=== PATIENT | female | born 1930 | race Two or more races ===

== ENCOUNTER 2018-06-14 08:23 | Emergency (ER) | payer OTHER ==
[~2018-06-14] VITALS: Ht 160 cm; Wt 108.9 kg
--- NOTE | 2018-06-14 08:23 | NUR ---
PT BIBA BLS TO BED 7
[2018-06-14 08:31] VITALS: BP 99/64
[2018-06-14] MEDS ORDERED: ESCI10TA PO (08:46)
[2018-06-14] MEDS ORDERED: FURO-570 PO (08:46)
[2018-06-14] MEDS ORDERED: METF500T PO (08:46)
[2018-06-14] MEDS ORDERED: MELA5TAB6 PO (08:46)
[2018-06-14] MEDS ORDERED: GABA300C PO (08:46)
[2018-06-14] MEDS ORDERED: SYN.05 PO (08:46)
[2018-06-14] MEDS ORDERED: CARV3.12 PO (08:46)
--- NOTE | 2018-06-14 08:53 | NUR ---
Patient being evaluated by physician at bedside.
--- NOTE | 2018-06-14 08:54 | NUR ---
BIBA WITH C/O EPIGASTRIC PAIN FOR 3 DAYS. STATES THE PAIN IS A BURNING AND CONSTANT. STATES SHE ALSO HAS "HEART PAIN" IN HER LEFT SHOULDER AND LEFT UPPER BACK. PACEMAKER NOTED. PATIENT ON MONITOR. BED IN LOW LOCKED POSITION WITH SIDE RAILS UP. VSS.
[2018-06-14] MEDS ORDERED: NACL 0.9% 1,000 ML IV ONE (08:55)
[2018-06-14] MEDS ORDERED: FAMOTIDINE 20 MG/2 ML VIAL IVP ONE (08:55)
[2018-06-14] MEDS ORDERED: ONDANSETRON 4 MG/2 ML VIAL IVP ONE (08:55)
[2018-06-14] MEDS ORDERED: DEXAMETHASONE 10 MG/ML VIAL IVP ONE (09:15)
[2018-06-14] MEDS ORDERED: METOCLOPRAMIDE 10 MG/2 ML INJ VIAL IVP ONE (09:15)
--- NOTE | 2018-06-14 09:30 | NUR ---
LAB AT BEDSIDE.
--- NOTE | 2018-06-14 09:35 | NUR ---
patient states pain has improved after medication was administered.
--- NOTE | 2018-06-14 09:40 | NUR ---
PATIENT TAKEN TO RADIOLOGY BY [facility] IN [facility].
[2018-06-14 09:46] LABS: BASOPHILS % (AUTO) 0.3 % (0.0-2.0); EOSINOPHILS % (AUTO) 0.3 % (0.0-4.0); HEMATOCRIT 36.3 % (36-48); LYMPHOCYTES # (AUTO) 0.7 K/uL (2.5-16.5); LYMPHOCYTES % (AUTO) 8.5 % (20.5-51.1); MEAN CORPUSCULAR HEMOGLOBIN 33 pg (27-31); MEAN CORPUSCULAR HGB CONC 33 g/dL (33-37); MEAN CORPUSCULAR VOLUME 98.4 fL (80-94); MONOCYTES # (AUTO) 0.4 K/uL (0.8-1.0); MONOCYTES % (AUTO) 4.8 % (1.7-9.3); NEUTROPHILS # (AUTO) 7.4 K/uL (1.8-7.7); NEUTROPHILS % (AUTO) 86.1 % (42.2-75.2); PLATELET COUNT (AUTO) 77 K/uL (140-450); RED BLOOD CELL COUNT(AUTO) 3.69 MIL/uL (4.20-5.40); RED CELL DISTRIBUTION WIDTH 15.4 % (11.6-13.7); WHITE BLOOD COUNT (AUTO) 8.6 K/uL (4.8-10.8)
--- NOTE | 2018-06-14 09:55 | NUR ---
PT RETURNED FROM CT
[2018-06-14 09:59] LABS: ANION GAP 12.9 (8-16); CARBON DIOXIDE 28.6 mmol/L (21-32); CHLORIDE 98 mmol/L (98-107); CREATININE 1.7 mg/dL (0.6-1.3); GLUCOSE 111 mg/dL (74-106); POTASSIUM 3.5 mmol/L (3.5-5.1); SODIUM SERUM 136 mmol/L (136-145); UREA NITROGEN, BLOOD 22 mg/dL (7-18)
[2018-06-14 10:05] LABS: ALBUMIN 3.6 g/dL (3.4-5.0); ASPARTATE AMINOTRANSFERASE 18 U/L (15-37); TOTAL BILIRUBIN 2.1 mg/dL (0.0-1.0)
[2018-06-14 10:42] LABS: ACETONE, SERUM NEGATIVE (NEGATIVE); AMYLASE 32 U/L (25-115); LIPASE 95 U/L (73-393); MAGNESIUM 1.7 mg/dL (1.8-2.4)
--- NOTE | 2018-06-14 10:51 | NUR ---
PATIENT STATES NO NEEDS AT THIS TIME.
--- NOTE | 2018-06-14 11:02 | NUR ---
PATIENT AMB WITH WALKER TO RESTROOM TO PROVIDE URINE SAMPLE.
[2018-06-14 11:08] LABS: FREE T4 (FREE THYROXINE) 1.44 ng/dL (0.76-1.46); THYROID STIMULATING HORMONE 2.86 uIU/mL (0.34-3.74)
[2018-06-14 11:21] LABS: BILIRUBIN,URINE 1+ (NEGATIVE); BLOOD, URINE NEGATIVE (NEGATIVE); COLOR,URINE YELLOW (YELLOW); LEUKOCYTE ESTERASE ,URINE TRACE (NEGATIVE); PH,URINE 5.5 (5.0-9.0); UGLUCOSE NEGATIVE (NEGATIVE)
[2018-06-14 11:42] LABS: APPEARANCE,URINE SLIGHTLY HAZY (CLEAR); NITRITE, URINE POSITIVE (NEGATIVE)
[2018-06-14 11:43] LABS: RBC,URINE 0-5 /HPF (0-5); WBC,URINE 0-5 /HPF (0-5)
--- NOTE | 2018-06-14 12:14 | NUR ---
spoke with patients daughter Jenna and she was informed on patients condition and admit status.
[2018-06-14 14:34] VITALS: BP 113/58
--- NOTE | 2018-06-14 14:35 | NUR ---
Patient to be transferred to [facility]. Is being transferred due to need for higher level of care. Receiving facility has accepting physician and available space. ER physician has signed transfer form. Patient has agreed to transfer and signed form. Patient belongings inventoried and will be sent with patient. Copy of nursing notes, lab reports, EKG, Physicians Orders and X-rays to be sent with patient. Report called to RN at receiving facility. [facility] ambulance service picked up patient for transfer. Report given to EMT.
== END 2018-06-14 14:35 | disposition short-term general hospital (02) ==
LOC: MED 08:23 → MTU 11:23 → UNDOADMIN 11:23 → MED 14:35
DX: R10.13 Epigastric pain (principal); R07.9 Chest pain, unspecified; G89.29 Other chronic pain; E03.9 Hypothyroidism, unspecified; I11.0 Hypertensive heart disease with heart failure; I50.9 Heart failure, unspecified; J44.9 Chronic obstructive pulmonary disease, unspecified; E66.9 Obesity, unspecified; K21.9 Gastro-esophageal reflux disease without esophagitis; E11.40 Type 2 diabetes mellitus with diabetic neuropathy, unspecified; Z90.49 Acquired absence of other specified parts of digestive tract; Z79.84 Long term (current) use of oral hypoglycemic drugs; Z79.899 Other long term (current) drug therapy; Z88.8 Allergy status to other drugs, medicaments and biological substances; Z68.41 Body mass index [BMI] 40.0-44.9, adult
CPT/HCPCS: 36415; 71045; 74176; 80053; 81001; 82009; 82150; 82948; 83690; 83735; 83880; 84439; 84443; 84479; 84484; 85025; 85610; 85730; 87086; 93005; 96361; 96374; 96375; 99285; J1100; J2405; J2765; J3490; J7030; Q0092; 99284